=== PATIENT | female | born 1985 | race African-American/Black ===

== ENCOUNTER 2023-07-15 13:03 | Emergency (ER) | payer BC ==
--- NOTE | 2023-07-15 13:06 | ERPHSYRPT ---
- History of Present Illness Time Seen by Provider: 07/15/23 13:06 Source: patient, old records Exam Limitations: no limitations Physician History: This is a 37-year-old female who has known history of low iron saturation levels and is on iron supplementation and presents to the emergency department with generalized dull headache today, dizziness, lightheadedness and diaphoresis. She denies nausea vomiting and diarrhea symptoms. She has no abdominal pain. She denies chest pain. She has mild shortness of breath with ambulating long distance. She did not suffer any acute head injury. Patient sees predatory animal hunter Dr. Angel. I did review outside records including laboratory data that was performed on 07/01/2023 at [facility]. Patient's hemoglobin was a pproximately 13 Timing/Duration: today Quality: aching (Generalized dull) Head Pain Location: global Severity of Pain-Max: mild Severity of Pain-Current: mild Recent Head Trauma: no recent headache/trauma Associated Symptoms: dizziness, light-headedness, sweating, No loss of consciousness, No nausea/vomiting, No neck pain, No seizures, No stiff neck, No vision changes, No weakness Previous symptoms: same symptoms as today, no recent treatment Allergies/Adverse Reactions: Penicillins Allergy (Severe, Verified 07/15/23 13:51) Hives Sulfa (Sulfonamide Antibiotics) Allergy (Severe, Verified 07/15/23 13:51) Hives tuberculin,PPD,multi-puncture Allergy (Intermediate, Verified 07/15/23 13:51) Rash Home Medications: Escitalopram Oxalate [Lexapro] 20 mg PO DAILY 07/15/23 [History] Ferrous Sulfate [Iron] 1 tab PO DAILY 07/15/23 [History] Fluticasone Propionate 2 spray IN DAILY 07/15/23 [History] Lamotrigine 100 mg [lamICTAL 100MG TABLET] 100 mg PO BID 07/15/23 [History] Metformin HCl 500 mg [Glucophage 500 MG] 500 mg PO DAILY 07/15/23 [History] Metoprolol Succinate 100 mg [Toprol Xl 100 MG] 100 mg PO HS 07/15/23 [History] Quetiapine Fumarate 100 mg [Seroquel 100 MG] 600 mg PO HS 07/15/23 [History] Travel Risk - International Travel Have you traveled outside of the country in past 3 weeks: No - Emerging Infectious Disease Are you exhibiting symptoms associated with any current EIDs: No - Review of Systems Constitutional: No Symptoms Eyes: No Symptoms Ears, Nose, & Throat: No Symptoms Respiratory: No Symptoms Cardiac: No Symptoms Abdominal/Gastrointestinal: No Symptoms Genitourinary Symptoms: No Symptoms Musculoskeletal: No Symptoms Skin: No Symptoms Neurological: Dizziness, Headache Psychological: No Symptoms Hematologic/Lymphatic: No Symptoms, Other (Diaphoresis) Immunological/Allergic: No Symptoms All Other Systems: Reviewed and Negative - Past Medical History Pertinent Past Medical History: Yes - Past Surgical History Past Surgical History: Yes - Nursing Vital Signs Nursing Vital Signs: Initial Vital Signs Temperature 98.3 F 07/15/23 13:37 Pulse Rate 81 07/15/23 13:37 Respiratory Rate 18 07/15/23 13:37 Blood Pressure 148/78 07/15/23 13:37 O2 Sat by Pulse Oximetry 97 07/15/23 13:37 Pain Scale Pain Intensity 0 - Course Nursing assessment & vital signs reviewed: Yes EKG Interpreted by Me: RATE (79), Sinus Rhythm, NORMAL AXIS, NORMAL INTERVALS, NORMAL QRS, NORMAL ST-T, Other (No acute ischemia on today's twelve-lead EKG.) Ordered Tests: Active Orders 24 hr Category Date Time Status EKG-ER Only STAT Care 07/15/23 14:21 Active IV Insertion STAT Care 07/15/23 14:01 Active HEAD WITHOUT CONTRAST [CT] Stat Exams 07/15/23 14:33 Completed CBC W DIFF Stat Lab 07/15/23 14:57 Completed CMP Stat Lab 07/15/23 14:57 Completed Ferritin Stat Lab 07/15/23 14:57 Completed MAGNESIUM Stat Lab 07/15/23 14:57 Completed TROPONIN Q4H Lab 07/15/23 14:57 Completed TROPONIN Q4H Lab 07/15/23 18:30 Ordered TROPONIN Q4H Lab 07/15/23 22:30 Ordered TSH, 3RD Generation Stat Lab 07/15/23 14:57 Completed UA W/RFX UR CULTURE Stat Lab 07/15/23 14:08 Completed Lab/Rad Data: Laboratory Result Diagrams 07/15/23 14:57 07/15/23 14:57 Laboratory Results 07/15/23 07/15/23 07/15/23 Range/Units 14:57 14:57 14:57 WBC (4.0-10.5) x10^3/uL RBC (4.1-5.4) x10^6/uL Hgb (12.0-16.0) g/dL Hct (35-47) % MCV (78-100) fL MCH (26-32) pg MCHC (32-36) g/dL RDW (11.5-14.0) % Plt Count (150-450) x10^3/uL MPV (7.5-11.0) fL Gran % (36.0-66.0) % Immature Gran % (Auto) (0.00-0.4) % Nucleat RBC Rel Count (0.00-0.1) % Eos # (Auto) (0-0.5) x10^3/uL Immature Gran # (Auto) (0.00-0.03) x10^3u/L Absolute Lymphs (auto) (1.0-4.6) x10^3/uL Absolute Monos (auto) (0.0-1.3) x10^3/uL Absolute Nucleated RBC (0.00-0.01) x10^3u/L Lymphocytes % (24.0-44.0) % Monocytes % (0.0-12.0) % Eosinophils % (0.00-5.0) % Basophils % (0.0-0.4) % Absolute Granulocytes (1.4-6.9) x10^3/uL Basophils # (0-0.4) x10^3/uL Sodium (135-145) mmol/L Potassium (3.5-5.1) mmol/L Chloride (98-107) mmol/L Carbon Dioxide (22-30) mmol/L Anion Gap (5-15) MEQ/L BUN (7-17) mg/dL Creatinine (0.52-1.04) mg/dL Estimated GFR ML/MIN Glucose (74-106) mg/dL Calcium (8.4-10.2) mg/dL Magnesium (1.6-2.3) mg/dL Iron 44 (37-170) ug/dL TIBC 298 (265-462) ug/dL Iron Saturation 15 L (20-39) % Ferritin 125 (6.24-137) ng/mL Total Bilirubin (0.2-1.3) mg/dL AST (14-36) U/L ALT (0-35) U/L Alkaline Phosphatase (38-126) U/L Troponin I (0.000-0.033) ng/mL Serum Total Protein (6.3-8.2) g/dL Albumin (3.5-5.0) g/dL Free T4 0.85 (0.78-2.19) ng/dL TSH 3rd Generation (0.470-4.680) mIU/L Urine Color (Yellow) Urine Appearance (Clear) Urine pH (4.6-8.0) Ur Specific Mora (1.005-1.030) Urine Protein (Negative) Urine Glucose (UA) (Negative) mg/dL Urine Ketones (Negative) Urine Blood (Negative) Urine Nitrite (Negative) Urine Bilirubin (Negative) Urine Urobilinogen (0.2) mg/dL Ur Leukocyte Esterase (Negative) U Hyaline Cast (Auto) (0-2) /LPF Urine Microscopic RBC (0-5) /HPF Urine Microscopic WBC (0-5) /HPF Ur Epithelial Cells (None Seen) /HPF Urine Bacteria (None Seen) /HPF Urine Culture Reflexed (NO) 07/15/23 07/15/23 07/15/23 Range/Units 14:57 14:57 14:57 WBC 9.2 (4.0-10.5) x10^3/uL RBC 4.16 (4.1-5.4) x10^6/uL Hgb 11.9 L (12.0-16.0) g/dL Hct 37.1 (35-47) % MCV 89.2 (78-100) fL MCH 28.6 (26-32) pg MCHC 32.1 (32-36) g/dL RDW 14.3 H (11.5-14.0) % Plt Count 416 (150-450) x10^3/uL MPV 8.9 (7.5-11.0) fL Gran % 61.4 (36.0-66.0) % Immature Gran % (Auto) 0.3 (0.00-0.4) % Nucleat RBC Rel Count 0.0 (0.00-0.1) % Eos # (Auto) 0.04 (0-0.5) x10^3/uL Immature Gran # (Auto) 0.03 (0.00-0.03) x10^3u/L Absolute Lymphs (auto) 2.86 (1.0-4.6) x10^3/uL Absolute Monos (auto) 0.59 (0.0-1.3) x10^3/uL Absolute Nucleated RBC 0.00 (0.00-0.01) x10^3u/L Lymphocytes % 31.1 (24.0-44.0) % Monocytes % 6.4 (0.0-12.0) % Eosinophils % 0.4 (0.00-5.0) % Basophils % 0.4 (0.0-0.4) % Absolute Granulocytes 5.64 (1.4-6.9) x10^3/uL Basophils # 0.04 (0-0.4) x10^3/uL Sodium 142 (135-145) mmol/L Potassium 4.3 (3.5-5.1) mmol/L Chloride 105 (98-107) mmol/L Carbon Dioxide 24 (22-30) mmol/L Anion Gap 16.8 H (5-15) MEQ/L BUN 12 (7-17) mg/dL Creatinine 0.88 (0.52-1.04) mg/dL Estimated GFR 86.2 ML/MIN Glucose 93 (74-106) mg/dL Calcium 9.4 (8.4-10.2) mg/dL Magnesium 2.3 (1.6-2.3) mg/dL Iron (37-170) ug/dL TIBC (265-462) ug/dL Iron Saturation (20-39) % Ferritin (6.24-137) ng/mL Total Bilirubin 0.20 (0.2-1.3) mg/dL AST 55 H (14-36) U/L ALT 31 (0-35) U/L Alkaline Phosphatase 77 (38-126) U/L Troponin I < 0.012 (0.000-0.033) ng/mL Serum Total Protein 8.3 H (6.3-8.2) g/dL Albumin 4.4 (3.5-5.0) g/dL Free T4 (0.78-2.19) ng/dL TSH 3rd Generation 1.428 (0.470-4.680) mIU/L Urine Color (Yellow) Urine Appearance (Clear) Urine pH (4.6-8.0) Ur Specific Mora (1.005-1.030) Urine Protein (Negative) Urine Glucose (UA) (Negative) mg/dL Urine Ketones (Negative) Urine Blood (Negative) Urine Nitrite (Negative) Urine Bilirubin (Negative) Urine Urobilinogen (0.2) mg/dL Ur Leukocyte Esterase (Negative) U Hyaline Cast (Auto) (0-2) /LPF Urine Microscopic RBC (0-5) /HPF Urine Microscopic WBC (0-5) /HPF Ur Epithelial Cells (None Seen) /HPF Urine Bacteria (None Seen) /HPF Urine Culture Reflexed (NO) 07/15/23 Range/Units 14:08 WBC (4.0-10.5) x10^3/uL RBC (4.1-5.4) x10^6/uL Hgb (12.0-16.0) g/dL Hct (35-47) % MCV (78-100) fL MCH (26-32) pg MCHC (32-36) g/dL RDW (11.5-14.0) % Plt Count (150-450) x10^3/uL MPV (7.5-11.0) fL Gran % (36.0-66.0) % Immature Gran % (Auto) (0.00-0.4) % Nucleat RBC Rel Count (0.00-0.1) % Eos # (Auto) (0-0.5) x10^3/uL Immature Gran # (Auto) (0.00-0.03) x10^3u/L Absolute Lymphs (auto) (1.0-4.6) x10^3/uL Absolute Monos (auto) (0.0-1.3) x10^3/uL Absolute Nucleated RBC (0.00-0.01) x10^3u/L Lymphocytes % (24.0-44.0) % Monocytes % (0.0-12.0) % Eosinophils % (0.00-5.0) % Basophils % (0.0-0.4) % Absolute Granulocytes (1.4-6.9) x10^3/uL Basophils # (0-0.4) x10^3/uL Sodium (135-145) mmol/L Potassium (3.5-5.1) mmol/L Chloride (98-107) mmol/L Carbon Dioxide (22-30) mmol/L Anion Gap (5-15) MEQ/L BUN (7-17) mg/dL Creatinine (0.52-1.04) mg/dL Estimated GFR ML/MIN Glucose (74-106) mg/dL Calcium (8.4-10.2) mg/dL Magnesium (1.6-2.3) mg/dL Iron (37-170) ug/dL TIBC (265-462) ug/dL Iron Saturation (20-39) % Ferritin (6.24-137) ng/mL Total Bilirubin (0.2-1.3) mg/dL AST (14-36) U/L ALT (0-35) U/L Alkaline Phosphatase (38-126) U/L Troponin I (0.000-0.033) ng/mL Serum Total Protein (6.3-8.2) g/dL Albumin (3.5-5.0) g/dL Free T4 (0.78-2.19) ng/dL TSH 3rd Generation (0.470-4.680) mIU/L Urine Color Yellow (Yellow) Urine Appearance Clear (Clear) Urine pH 7.5 (4.6-8.0) Ur Specific Mora 1.015 (1.005-1.030) Urine Protein Negative (Negative) Urine Glucose (UA) Negative (Negative) mg/dL Urine Ketones Negative (Negative) Urine Blood Negative (Negative) Urine Nitrite Negative (Negative) Urine Bilirubin Negative (Negative) Urine Urobilinogen 0.2 (0.2) mg/dL Ur Leukocyte Esterase Negative (Negative) U Hyaline Cast (Auto) NONE SEEN (0-2) /LPF Urine Microscopic RBC 0-2 (0-5) /HPF Urine Microscopic WBC 0-2 (0-5) /HPF Ur Epithelial Cells None Seen (None Seen) /HPF Urine Bacteria None Seen (None Seen) /HPF Urine Culture Reflexed NO (NO) - Progress Progress: re-examined Air Movement: good Progress Note: 07/15/23 14:35 My medical decision making and the assignment of moderate complexity to this patient's medical issue today is based on review of the patient's past medical history, review of the patient's medication list, review of patient drug allergy list, history of present illness and physical findings on examination. The workup in this patient includes placement of an intravenous line, twelve-lead EKG, CBC, CMP, urinalysis, twelve-lead EKG, troponin level, CT scan of the head and thyroid testing. Once I have the results of the studies my plan is to attempt to get a hold of this patient's predatory animal hunter. Differential diagnosis includes anemia, low iron levels, electrolyte abnormalities, arrhythmias, intracranial abnormality, urinary tract infection, dehydration abnormal thyroid function test 07/15/23 15:52 I interpreted the patient's lab results. Based on the lab results, there are no acute, emergent medical issues. CT scan of the head was interpreted by the radiologist and I reviewed the impression. Impression states normal CT scan of the head without contrast. 07/15/23 17:18 The patient states she is feeling better. She was concerned that her iron levels had dropped significantly causing similar symptoms that she has had in the past when this occurred. We attempted to do a notify/contact her predatory animal hunter. We placed at least 2 phone calls to him. He never called back. I believe that this patient is medically stable to be discharged to home. She is to call the predatory animal hunter and her primary care provider tomorrow, 07/16/2023 to make arranges for follow-up appointment to be seen in the next 3 to 5 days. Blood Culture(s) Obtained: No Antibiotics given: No Counseled pt/family regarding: lab results, diagnosis, need for follow-up, rad results Medical Desision Making - Diagnostic Testing Diagnostic test were ordered, analyzed, and reviewed by me: Yes Radiological Interpretation: Reviewed by me, Teleradiologist Report - Risk of complications Low Risk: Low risk of morbidity from additional dx testing or treatment - Departure Departure Disposition: Home Clinical Impression: Headache Condition: Stable Critical Care Time: No Referrals: HOANG OTT MD [Primary Care Provider] - Follow up/PCP as directed Additional Instructions: If there are no contraindications, use Tylenol and ibuprofen for headache pain. Take all your other medications as prescribed. Call your primary care provider and predatory animal hunter tomorrow, 07/16/2023, to make arrangements to be evaluated in the next 3 to 5 days.
[2023-07-15 13:49] VITALS: TEMP 98.3; O2SAT 97
[2023-07-15 14:58] LABS: Absolute Neutrophil Ct (ANC) 5.64 x10^3/uL (1.4-6.9); BASOPHIL % 0.4 % (0.0-0.4); Basophil (Absolute #) 0.04 x10^3/uL (0-0.4); Eosinophil % 0.4 % (0.00-5.0); Eosinophil (Absolute #) 0.04 x10^3/uL (0-0.5); Hematocrit 37.1 % (35-47); Hemoglobin 11.9 g/dL (12.0-16.0); IMMATURE GRAN # 0.03 x10^3u/L (0.00-0.03); IMMATURE GRAN % 0.3 % (0.00-0.4); Lymphocyte (Absolute #) 2.86 x10^3/uL (1.0-4.6); Lymphocytes % 31.1 % (24.0-44.0); Mean Cell Volume 89.2 fL (78-100); Mean Corpuscular Hemoglobin 28.6 pg (26-32); Mean Corpuscular Hgb Concent. 32.1 g/dL (32-36); Mean Platelet Volume 8.9 fL (7.5-11.0); Monocyte (Absolute #) 0.59 x10^3/uL (0.0-1.3); Monocytes % 6.4 % (0.0-12.0); Neutrophil % 61.4 % (36.0-66.0); Platelet Count 416 x10^3/uL (150-450); Red Blood Count 4.16 x10^6/uL (4.1-5.4); Red Cell Distribution Width 14.3 % (11.5-14.0); White Blood Count 9.2 x10^3/uL (4.0-10.5)
[2023-07-15 15:01] LABS: Appearance Clear (Clear); Bacteria None Seen /HPF (None Seen); Bilirubin Negative (Negative); Blood Negative (Negative); Epithelial Cells None Seen /HPF (None Seen); Glucose, Urine Negative (Negative); Hyaline Casts NONE SEEN /LPF (0-2); Ketones Negative (Negative); Leukocyte Esterase Negative (Negative); Nitrite Negative (Negative); Ph 7.5 (4.6-8.0); Protein,Urine Dip Negative (Negative); RBC 0-2 /HPF (0-5); Specific Gravity 1.015 (1.005-1.030); Urobilinogen 0.2 mg/dL (0.2); WBC 0-2 /HPF (0-5)
[2023-07-15 15:05] LABS: ADD URINE CULTURE? NO (NO)
[2023-07-15 15:43] LABS: Iron 44 ug/dL (37-170); Iron Saturation 15 % (20-39); TIBC 298 ug/dL (265-462)
--- NOTE | 2023-07-15 15:43 | XRAY ---
Indication: Headache, lightheadedness, dizziness. Multiple contiguous axial images obtained through the head without contrast. Comparison: None Normal appearing brain parenchyma, ventricles, and bony calvarium. Visualized paranasal sinuses and mastoid air cells are clear. Impression: Normal CT head without contrast exam.
[2023-07-15 15:44] LABS: ALBUMIN 4.4 g/dL (3.5-5.0); ANION GAP 16.8 MEQ/L (5-15); BILIRUBIN,TOTAL 0.2 mg/dL (0.2-1.3); Calcium 9.4 mg/dL (8.4-10.2); Creatinine 1 0.88 mg/dL (0.52-1.04); EST GLOMERULAR FILTRATION RATE 86.2 ML/MIN; MAGNESIUM 2.3 mg/dL (1.6-2.3); Potassium 4.3 mmol/L (3.5-5.1); TSH, 3RD Generation 1.428 mIU/L (0.470-4.680); Total Protein 8.3 g/dL (6.3-8.2)
[2023-07-15 17:23] VITALS: BP 137/89; PULSE 80; RESP 20
== END 2023-07-15 17:31 | disposition home or self-care (01) ==
LOC: ED 13:03
DX: R51.9 Headache, unspecified (principal); R42 Dizziness and giddiness; Z79.84 Long term (current) use of oral hypoglycemic drugs; Z79.899 Other long term (current) drug therapy
CPT/HCPCS: 36000; 36415; 70450; 80053; 81001; 82728; 83540; 83550; 83735; 84439; 84443; 84484; 85025; 93005; 99284